=== PATIENT | female | born 1945 | race Hispanic/Latino ===

== ENCOUNTER 2024-08-23 10:14 | Emergency (ER) | payer OTHER ==
[~2024-08-23] VITALS: Ht 144.8 cm; Wt 53.5 kg
--- NOTE | 2024-08-23 10:34 | ERN ---
General Chief Complaint: Altered Mental Status Stated Complaint: AMS Time Seen by MD: 10:18 Source: patient History of Present Illness Initial Comments Patient is a 79-year-old female coming in to be evaluated for generalized body weakness and vertigo. Per patient these symptoms have been ongoing for two weeks but last night got worse. Patient also states that she has been more forgetful lately per family member at bedside. Patient does have a history of vertigo but states it has been getting worse. Allergies: Coded Allergies: No Known Allergies (Unverified Allergy, Unknown, 08/23/24) Past Medical History Past Medical History: Depression, Diabetes-Type II, Hypertension, Hypothyroid Past Surgical History: None Surgical History Other: LT KNEE SX, BILAT HAND SX ROS Dictation CONSTITUTIONAL: No chills, no fever, no weakness, no diaphoresis, no malaise. HEAD/FACE: No signs of trauma. EENT: No eye pain, no blurred vision, no tearing, no double vision, no ear pain, no ear discharge, no nose pain, no nasal congestion, no throat pain, no throat swelling, no mouth pain. RESPIRATORY: No cough, no orthopnea, no SOB, no stridor, no wheezing. CARDIOVASCULAR: No chest pain, no edema, no palpitations, no syncope. GASTROINTESTINAL/ABDOMINAL: No abdominal pain, no constipation, no diarrhea, no nausea, no vomiting. GENITOURINARY: No abnormal discharge, no dysuria, no frequent urination, no hematuria. No complaints of pain in the genitals. MUSCULOSKELETAL: No back pain, no gout, no joint pain, no joint swelling, no muscle pain, no muscle stiffness, no neck pain. INTEGUMENTARY: No change in color, no change in hair/nails, no dryness, no lesion, no lumps, no rash. NEUROLOGICAL/PSYCH: No anxiety, not depressed, no emotional problem, no headache, no numbness, no pre-existing deficit, no history of seizures, no tremors, no weakness. HEMATOLOGIC/LYMPHATIC: Not anemic, no history of blood clots, no apparent bleeding, no bruising, glands not swollen. All Systems Negative, Except as Noted. Physical Exam Physical Exam Dictation VITAL SIGNS: Reviewed. GENERAL APPEARANCE: Alert, oriented x3, no acute distress, obese. HEAD AND FACE: Non-traumatic. EYES: PERRL, pink conjunctivas, eyelid no trauma, anterior chamber clear. EARS: Pinnas intact and no signs of trauma or erythema. Ear canals clear and no discharge. TMs no erythema. NOSE: No discharge, no bleeding. OROPHARYNX: Mouth normal, teeth no caries, tongue pink. Pharynx clear, no erythema. Tonsils no exudates, no abscesses noted. Mucous membrane moist. NECK: Supple, non-tender, no thyromegaly, no masses, no JVD, no bruits. BREAST: Deferred. CHEST: No tenderness, no crepitus, no paradoxical movement, no retractions. LUNGS: Clear, well-ventilated, symmetric, no rales, no wheezing, no rhonchi, no stridor, good breath sounds bilaterally. HEART: Regular rate, regular rhythm, no murmur, no gallops. VASCULAR: No peripheral edema. ABDOMEN: Soft, positive bowel sounds, nondistended, no guarding, nontender, no rebound, no masses no hepatomegaly, no splenomegaly, no Keene's sign, no hernias. RECTAL: Deferred. GENITAL: Deferred. NEUROLOGICAL: Normal speech, gross motor function intact, gross sensory function intact. MUSCULOSKELETAL: Neck nontender, full range of motion, back nontender, full range of motion. EXTREMITIES: Nontender, full range of motion. SKIN: Color pink, dry, no turgor, no rash, no lacerations, no abrasions, no contusions. LYMPHATICS: Deferred. Results Laboratory and Microbiology Lab and Micro Result Laboratory Tests Test 08/23/24 10:46 08/23/24 10:52 Urine Color YELLOW (YELLOW) Urine Appearance CLEAR (CLEAR) Urine pH 6.0 (5.0-8.0) Urine Specific [place] 1.028 (1.001-1.031) Urine Protein 10 mg/dL (NEGATIVE) H Urine Glucose (UA) NEGATIVE mg/dL (NEGATIVE) Urine Ketones 5 mg/dL (NEGATIVE) H Urine Occult Blood NEGATIVE (NEGATIVE) Urine Nitrate NEGATIVE (NEGATIVE) Urine Bilirubin NEGATIVE mg/dL (NEGATIVE) Urine Urobilinogen 0.2 mg/dL (0.2-1.0) Urine Leukocyte Esterase 25 Jayla/uL (NEGATIVE) H Urine RBC 0-1 /HPF (0-1) Urine WBC 2-5 /HPF (0-1) H Urine Squamous Epithelial Cells FEW /HPF (0-2) Urine Bacteria None /HPF (None Seen) White Blood Count 5.0 K/uL (4.8-10.8) Red Blood Count 4.06 MIL/uL (4.00-5.50) Hemoglobin 12.1 g/dL (12.0-16.0) Hematocrit 37.5 % (36-48) Mean Corpuscular Volume 92.4 fL (79-99) Mean Corpuscular Hemoglobin 29.8 pg (27.0-33.0) Mean Corpuscular Hemoglobin Concent 32.3 g/dL (32.0-36.0) Red Cell Distribution Width 12.6 % (11.0-15.5) Platelet Count 191 K/uL (130-400) Mean Platelet Volume 10.4 fL (7.5-10.5) Immature Granulocyte % (Auto) 0.4 % (0-1) Neutrophils (%) (Auto) 57.6 % (40.0-77.0) Lymphocytes (%) (Auto) 32.1 % (21.0-51.0) Monocytes (%) (Auto) 6.7 % (3.0-13.0) Eosinophils (%) (Auto) 2.6 % (0.0-8.0) Basophils (%) (Auto) 0.6 % (0.0-5.0) Neutrophils # (Auto) 2.9 K/uL (1.8-7.7) Lymphocytes # (Auto) 1.6 K/uL (1.0-4.8) Monocytes # (Auto) 0.3 K/uL (0.1-1.0) Eosinophils # (Auto) 0.13 K/uL (0.00-0.70) Basophils # (Auto) 0.03 K/uL (0.00-0.20) Absolute Immature Granulocyte (auto 0.02 K/uL (0-1) Nucleated Red Blood Cells 0.0 % (0.0-0.19) Prothrombin Time 10.4 SEC (9.6-11.6) Prothromb Time International Ratio <= 0.93 (0.85-1.15) Activated Partial Thromboplast Time 25.0 SEC (26.3-35.5) L Sodium Level 137 mmol/L (136-145) Potassium Level 4.0 mmol/L (3.5-5.1) Chloride Level 102 mmol/L (101-111) Carbon Dioxide Level 29 mmol/L (21-32) Blood Urea Nitrogen 21 mg/dL (7-18) H Creatinine 0.9 mg/dL (0.5-1.0) Glomerular Filtration Rate Calc 66 mL/min (>90) Random Glucose 124 mg/dL (70-105) H Total Calcium 9.6 mg/dL (8.5-10.1) Magnesium Level 1.30 mg/dL (1.80-2.40) L Total Creatine Kinase 109 U/L (21-232) Troponin I High Sensitivity 12 ng/L (4-50) B-Type Natriuretic Peptide 29 pg/mL (0-100) Labs Reviewed?: Yes EKG/XRAY/US/CT/MRI EKG Comment 08/23/2024 time 10:39 a.m. Ventricular rate [address] wave elevation or depression [place] 136 X-RAY Comment [facility] [address] [place] [address] [id number] IMAGING REPORT Signed PATIENT: NIRMALA DENNIS MR#: [id number] : 1945 SEX: F AGE: 79 LOCATION: [facility] ORDER 103 STATUS: [facility] REPORT#: [id number] SERVICE 1031 REASON: cp ORDERING PHYSICIAN: MELYSSA YODER MD PROCEDURE: CXR1VW - CHEST 1VW Exam Type: CHEST 1VW Clinical Information: cp Comparison: None Findings: The lungs are clear of infiltrates. The heart is normal in size. The bony and soft tissue structures of the chest are unremarkable. Impression: Clear lungs. DICTATED BY: FLORENTIN SRINIVASAN MD DATE: 08/23/24 110 ELECTRONICALLY SIGNED BY: FLORENTIN SRINIVASAN MD DATE: 08/23/241105 CT Scan Comment [facility] [address] [place] [phone] IMAGING REPORT Signed PATIENT: NIRMALA DENNIS MR#: [id number] : 1945 SEX: F AGE: 79 LOCATION: [facility] ORDER 1032 STATUS: REG ER REPORT#: [id number] SERVICE 103 REASON: vertigo ORDERING PHYSICIAN: MELYSSA YODER MD PROCEDURE: HEAD WO - CT HEAD/BRAIN W/O CONTRAST Exam Type: CT HEAD/BRAIN W/O CONTRAST Clinical Information: vertigo Comparison: None CT Dose Index (CTDI): 57.33 mGy Dose Length Product (DLP): 956.79 total mGy-cm Findings: This study was performed using dose reduction techniques to include automated exposure control and/or adjustment of the mA and/or kV according to patient size. The examination is unremarkable except for atrophy Castaneda-white matter junction is preserved. No intra or extra axial lesions or fluid collections are seen. Specifically, castaneda and white matter are normal in signal characteristics with normal caliber of ventricles and periventricular cisterns with no evidence of intra or or extra-axial hemorrhage, lacunar infarct, or major territorial infarct, mass, or other abnormality. There are no infarcts. There are no hemorrhages. Periventricular white matter locations are preserved. The orbital contents and structures of the posterior fossa are intact. Impression: Atrophy. This study was performed using dose reduction techniques to include automated exposure control and/or adjustment of the mA and/or kV according to patient size. DICTATED BY: FLORENTIN SRINIVASAN MD DATE: 08/23/24 113 ELECTRONICALLY SIGNED BY: FLORENTIN SRINIVASAN MD DATE: 08/23/24 1134 [facility] MDM: Differential diagnosis: Vertigo, stroke, UTI, gastroenteritis, Patient is a 79-year-old female coming in to be evaluated for vertigo. She states that she has been having these symptoms for two weeks. She states it is stable and progressively getting worse. Laboratory workup positive for urinary tract infection and dehydration. Patient received IV fluids states he feels much better. ED Course Orders Procedure Category Date Status Time Cbc With Differential LAB 08/23/24 Complete 10:31 Prothrombin Time With LAB 08/23/24 Complete INR 10:31 B-Type Natriuretic LAB 08/23/24 Complete Peptide 10:31 Chest 1vw RAD 08/23/24 Resulted 10:31 12 Lead Ekg Tracing- EKG 08/23/24 Logged Technical 10:31 Lactated Ringers PHA 08/23/24 Complete 1000ml (Lactated 11:00 Magnesium LAB 08/23/24 Complete 10:31 Creatine Kinase, Total LAB 08/23/24 Complete 10:31 Troponin I High LAB 08/23/24 Complete Sensitivity 10:31 Urinalysis Profile LAB 08/23/24 Complete 10:31 Partial LAB 08/23/24 Complete Thromboplastin Time 10:31 Basic Metabolic Panel LAB 08/23/24 Complete 10:31 Meclizine Hcl 25 Mg PHA 08/23/24 Complete (Antivert 25 Mg) 11:00 Ct Head/Brain W/O CT 08/23/24 Resulted Contrast 10:31 Magnesium 2gm Premix PHA 08/23/24 Complete 50ml (Magnesium 2gm 11:50 Current Medications Medications (Trade) Dose Ordered Sig/Erika Route PRN Reason Start Time Stop Time Status Last Admin Dose Admin Lactated Ringer's 1,000 ml @ 0 mls/hr ONCE ONCE IV 08/23/24 11:00 08/23/24 11:01 DC 08/23/24 10:48 Magnesium Sulfate 50 ml @ 0 mls/hr PROTOCOL STAT IV 08/23/24 11:50 08/23/24 11:51 DC 08/23/24 12:00 Meclizine HCl (ANTIvert 25 mg) 25 mg ONCE ONCE PO 08/23/24 11:00 08/23/24 11:01 DC 08/23/24 10:48 Vital Signs Date Time Temp Pulse Resp B/P (MAP) Pulse Ox O2 Delivery O2 Flow Rate FiO2 08/23/24 12:15 98.2 67 18 153/52 100 Room Air* 0 21 08/23/24 10:51 98.2 68 16 181/72 100 Room Air* 0 21 08/23/24 10:18 97.5 78 18 119/69 100 Room Air 0 DX & DISP Disposition: Discharge Departure Impression: Primary Impression: Dehydration Additional Impressions: UTI (urinary tract infection), Hypomagnesemia, History of vertigo Condition: Stable Scripts Meclizine HCl (Antivert) 25 Mg Tab.chew 25 MG PO BID PRN for VERTIGO for 5 Days, #10 TAB.CHEW Prov: MELYSSA YODER MD 08/23/24 Cephalexin Monohydrate (Keflex) 500 Mg Cap 1 CAP PO BID for 10 Days, #20 CAP 0 Refills Prov: MELYSSA YODER MD 08/23/24 Additional Instructions: FOLLOW-UP WITH PRIMARY CARE PROVIDER IN 1 TO 2 DAYS. TAKE MEDICATIONS DIRECTED HERE IN THE EMERGENCY ROOM. OKAY TO CONTINUE HOME MEDICATIONS UNLESS OTHERWISE DISCUSSED DURING YOUR VISIT IN THE EMERGENCY ROOM TODAY. RETURN TO YOUR NEAREST EMERGENCY ROOM IF SYMPTOMS WORSEN OR IF THERE IS NO IMPROVEMENT. CALL 911 IF YOU NEED IMMEDIATE ASSISTANCE. TAKE TYLENOL [id number] NEEDED AND IF NO CONTRAINDICATIONS ARE PRESENT. INCREASE ORAL HYDRATION. A WOUND CULTURE OR URINE CULTURE WAS ORDERED HERE IN THE EMERGENCY ROOM DEPARTMENT PLEASE FOLLOW-UP WITH PRIMARY CARE PROVIDER AND ADVISE THEM TO GET REPEAT PORTS FROM OUR FACILITY. IF YOU HAD ANY PACO WRAP/SPLINTS THAT WERE APPLIED HERE, PLEASE DO NOT REMOVE THEM UNTIL YOU SEE YOUR PRIMARY CARE OR SPECIALTY. REFERRALS: Referrals: SHAUN HUMPHREYS MD Time of Disposition: 12:36 MELYSSA YODER MD Aug 23, 2024 10:34
[2024-08-23] MEDS: LACTATED RINGERS 1000ML 1,000 ML IV ONE (10:48)
[2024-08-23] MEDS: mecliZINE HCL 25 MG TABLET PO ONE (10:48)
[2024-08-23 11:05] LABS: APPEARANCE,URINE CLEAR (CLEAR); BILIRUBIN,URINE NEGATIVE (NEGATIVE); COLOR,URINE YELLOW (YELLOW); GLUCOSE, URINE (UA) NEGATIVE (NEGATIVE); KETONES,URINE 5 mg/dL (NEGATIVE); LEUKOCYTE ESTERASE ,URINE 25 Leu/uL (NEGATIVE); NITRATE,URINE NEGATIVE (NEGATIVE); OCCULT BLOOD,URINE NEGATIVE (NEGATIVE); PROTEIN,URINE 10 mg/dL (NEGATIVE); UROBILINOGEN,URINE 0.2 mg/dL (0.2-1.0)
--- NOTE | 2024-08-23 11:06 | HMCIMG ---
Exam Type: CHEST 1VW Clinical Information: cp Comparison: None Findings: The lungs are clear of infiltrates. The heart is normal in size. The bony and soft tissue structures of the chest are unremarkable. Impression: Clear lungs.
[2024-08-23 11:07] LABS: ADD UA MICROSCOPIC YES
[2024-08-23 11:09] LABS: MUCUS,URINE RARE LPF (None Seen); RBC,URINE 0-1 /HPF (0-1); SQUAMOUS EPITHELIAL CELL,UR FEW /HPF (0-2)
[2024-08-23 11:18] LABS: BASOPHILS # (AUTO) 0.03 K/uL (0.00-0.20); BASOPHILS % (AUTO) 0.6 % (0.0-5.0); EOSINOPHILS # (AUTO) 0.13 K/uL (0.00-0.70); EOSINOPHILS % (AUTO) 2.6 % (0.0-8.0); HEMATOCRIT 37.5 % (36-48); IMMATURE GRANULOCYTE ABSOLUTE 0.02 K/uL (0-1); LYMPHOCYTES # (AUTO) 1.6 K/uL (1.0-4.8); LYMPHOCYTES % (AUTO) 32.1 % (21.0-51.0); MEAN CORPUSCULAR HEMOGLOBIN 29.8 pg (27.0-33.0); MEAN CORPUSCULAR HGB CONC 32.3 g/dL (32.0-36.0); MEAN CORPUSCULAR VOLUME 92.4 fL (79-99); MONOCYTES # (AUTO) 0.3 K/uL (0.1-1.0); MONOCYTES % (AUTO) 6.7 % (3.0-13.0); NEUTROPHILS # (AUTO) 2.9 K/uL (1.8-7.7); NEUTROPHILS % (AUTO) 57.6 % (40.0-77.0); PLATELET COUNT (AUTO) 191 K/uL (130-400); RED BLOOD CELL COUNT(AUTO) 4.06 MIL/uL (4.00-5.50); RED CELL DISTRIBUTION WIDTH 12.6 % (11.0-15.5)
[2024-08-23 11:19] LABS: CREATININE 0.9 mg/dL (0.5-1.0)
[2024-08-23 11:24] LABS: MAGNESIUM 1.3 mg/dL (1.80-2.40)
--- NOTE | 2024-08-23 11:34 | HMCIMG ---
Exam Type: CT HEAD/BRAIN W/O CONTRAST Clinical Information: vertigo Comparison: None CT Dose Index (CTDI): 57.33 mGy Dose Length Product (DLP): 956.79 total mGy-cm Findings: This study was performed using dose reduction techniques to include automated exposure control and/or adjustment of the mA and/or kV according to patient size. The examination is unremarkable except for atrophy Castaneda-white matter junction is preserved. No intra or extra axial lesions or fluid collections are seen. Specifically, castaneda and white matter are normal in signal characteristics with normal caliber of ventricles and periventricular cisterns with no evidence of intra or or extra-axial hemorrhage, lacunar infarct, or major territorial infarct, mass, or other abnormality. There are no infarcts. There are no hemorrhages. Periventricular white matter locations are preserved. The orbital contents and structures of the posterior fossa are intact. Impression: Atrophy. This study was performed using dose reduction techniques to include automated exposure control and/or adjustment of the mA and/or kV according to patient size.
[2024-08-23 11:40] LABS: B-TYPE NATRIURETIC PEPTIDE 29 pg/mL (0-100)
[2024-08-23 11:41] LABS: INR <= 0.93 (0.85-1.15); PROTHROMBIN TIME 10.4 SEC (9.6-11.6)
[2024-08-23] MEDS: MAGNESIUM 2GM PREMIX 50ML 50 ML IV STA (12:00)
[2024-08-23] MEDS ORDERED: MECL-262 PO (12:37)
[2024-08-23] MEDS ORDERED: CEPH500B PO (12:37)
[2024-08-23 13:17] VITALS: BP 148/63; PULSE 63; RESP 17; TEMP 98.2; O2SAT 100
--- NOTE | 2024-08-23 13:21 | NUR ---
PT STABLE AAOX4. PT IN NO DISTRESS, VITALS WNL NO C/O PAIN NOW. DISCHARGE INSTRUCTION GIVEN TO PT AND DAUGHTER BOTH VERBALIZED UNDERSTANDING. IV REMOVED INTACT. PT GIVEN TWO RX IN HAND WILL START TODAY. PT TAKEN OUT IN W/C DRIVEN HOME BY DAUGHTER.
--- NOTE | 2024-08-23 17:53 | EKG ---
[facility] Test Date: 2024-08-23 Test Time: 10:39:43 Pat Name: NIRMALA DENNIS Department: ED Room: Gender: F [employer]: [id number] 1945 Requested By: MELYSSA YODER Order Number: [id number] Reading MD: Louie Pennington Measurements Intervals Hagerman Rate: 67 P: 72 MA: 136 QRS: -45 QRSD: 104 T: 67 QT: 408 QTc: 432 Interpretive Statements Sinus rhythm LAD, consider left anterior fascicular block LVH with secondary repolarization abnormality No previous ECG available for comparison Electronically Signed On 08-25-2024 18:17:42 [employer] by Louie Pennington Please click the below link to view image of tracing.
== END 2024-08-23 13:38 | disposition home or self-care (01) ==
LOC: EDH 10:14
DX: E86.0 Dehydration (principal); N39.0 Urinary tract infection, site not specified; E83.42 Hypomagnesemia; E11.9 Type 2 diabetes mellitus without complications; E03.9 Hypothyroidism, unspecified; I10 Essential (primary) hypertension; F32.A Depression, unspecified; Z98.890 Other specified postprocedural states
CPT/HCPCS: 99285; 96365; 70450; 71045; 96361; 82550; 83735; 84484; 80048; 83880; 85025; 85610; 85730; 81001; 36415; 93005; J3475